=== PATIENT | male | born 1975 | race Caucasian/White ===

== ENCOUNTER 2024-05-12 08:30 | Emergency (ER) | payer OTHER, SELFPAY ==
[2024-05-12 08:34] VITALS: BP 153/87
[2024-05-12 08:41] VITALS: BP 153/87; BMI 29.5
--- NOTE | 2024-05-12 08:58 | EDRN ---
the pts and daughter were brought back to the pts room, the pt was able to provide this RN a urine sample
[2024-05-12 09:05] LABS: % Basophils 0.6 % (0-2); % Eosinophils 0.5 % (0-6); % Immature Granulocytes 0.2 % (0-0.5); % Lymphocytes 13.7 % (20.5-51.1); % Monocytes 7.4 % (1.7-9.3); % Neutrophils 77.6 % (42.2-75.2); Absolute Basophils 0.1 10^3/uL (0-0.2); Absolute Eosinophils 0.1 10^3/uL (0-0.7); Absolute Lymphocytes 1.3 10^3/uL (1.2-3.4); Absolute Monocytes 0.7 10^3/uL (0.1-0.6); Absolute Neutrophils 7.3 10^3/uL (1.4-6.5); Hematocrit 46.5 % (39.0-52.0); Hemoglobin 16.5 g/dL (13.0-18.0); Mean Corp Hgb Conc. 35.5 g/dL (33.0-37.0); Mean Corpuscular Hgb 30.4 pg (27.0-31.0); Mean Corpuscular Volume 85.6 fL (80.0-94.0); Mean Platelet Volume 9.6 fL (7.4-10.4); Nucleated Red Blood Cells % 0 % (-); Platelet Count 271 10^3/uL (130-400); Red Blood Cell Count 5.43 10^6/uL (4.70-6.10); Red Cell Dist. Width 11.5 % (11.5-14.5); White Blood Cell Count 9.4 10^3/uL (4.8-10.8)
--- NOTE | 2024-05-12 09:05 | EDRN ---
the pt pressed the call zeng and this RN entered the pts room, the pt was seen crying and asked this RN for a tissue, this RN provided the pt with a box of tissues, the pt stated to this RN, 'I am scared of going to sleep and waking up and finding
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
--- NOTE | 2024-05-12 09:13 | ED.GENMED ---
History of Present Illness
General
Chief Complaint: Psychiatric Problem
Source: patient and spouse
Exam Limitations: none
Time Seen by Provider: 05/12/24 08:32
Nursing documentation reviewed up to this point in time: agreed with
History of Present Illness
History of Present Illness:
48-year-old male brought to the ER by EMS. and daughter at bedside. is giving majority history. She reports that patient has a history of bipolar disorder however for at least 20 years has been off of his lithium and has been doing
fine. For the past 3 days she reports patient is acting erratic very manic not making sense. He was up all night texting. Today he was stating he was not making any sense. Patient presents to the ER awake alert anxious he is aware that he is'
not thinking right.'
reports patient had a half of pot gummy last night which is typical prior to sleep. Patient denies any other drug use.
Patient denies any suicidal homicidal thoughts.
Review of Systems
Review of Systems
Allergies reviewed?: Yes
Other source history: family
All Other Systems: ROS reviewed and negative except as documented in HPI and ROS
Constitutional: Reports no symptoms; Denies fever, fatigue or chills
Respiratory: Reports no symptoms
Cardiac: Reports no symptoms
ABD/GI: Reports no symptoms
Musculoskeletal: Reports no symptoms
Skin: Reports no symptoms
Neurological: Reports no symptoms
Psychiatric: Reports other (Anxious manic disorganized thoughts); Denies suicidal
Phy Exam
General Physical Exam
General Presentation: no apparent distress
General age: appears stated age
General Skin: warm and dry
General Habitus: normal
General Mental: alert
General Hydration: appears well hydrated
Cardiovascular Exam
Cardiovascular Exam: regular rate/rhythm
Pulmonary Exam
Pulmonary Exam: lungs clear and no respiratory distress
Neurological Exam
Neurological Exam: alert and oriented x3
Musculoskeletal Exam
Musculoskeletal Exam: full ROM
Skin Exam
Skin Exam: normal color and warm/dry
Psychiatric Exam
Psychiatric Exam: anxious and other (Manic)
Course
Orders/Labs/Results
Orders:
Orders
05/12/24 08:56
Complete Blood Count/With Diff Urgent
Comprehensive Metabolic Panel Urgent
TSH Reflex To Free T4 Urgent
Urinalysis Reflex To Culture Urgent
Date Specimen was Collected: 05/12/24
Time Specimen was Collected: 08:51
Urine Drug Abuse Screen Urgent
Date Specimen was Collected: 05/12/24
Time Specimen was Collected: 08:51
05/12/24 09:25
Add On- LAB Urgent
Tests Added?: tsh w/ reflexive T4
05/12/24 09:27
CT Head W/o Iv Contrast Urgent
Comment:
Reason For Exam: acute change in ms
05/12/24 09:29
PSYCHIATRY CONSULT Urgent
Consulting Provider: Ben Phelps
Was physician already notified: Yes
Reason for consult: eval for change in ms manic x3d
05/12/24 09:56
0.9% Sodium Chloride 1000 ml [Nss] 1,000 ml IV BOLUS
05/12/24 10:21
Crisis Consult Urgent
Reason for Consult: eval for placement as per psychiatrist
05/12/24 11:12
Lorazepam [Ativan] 1 mg PO Q4HPRN PRN
05/12/24 Dinner
Regular
At Your Request: Full Participation
Does patient need a safe tray?: Yes
Abnormal Lab Results
05/12/24
08:56
Absolute Neuts (auto) 7.3 H 10^3/uL
(1.4-6.5)
Absolute Monos (auto) 0.7 H 10^3/uL
(0.1-0.6)
Neutrophils % 77.6 H %
(42.2-75.2)
Lymphocytes % 13.7 L %
(20.5-51.1)
Carbon Dioxide 20 L mmol/L
(22-30)
BUN 33 H mg/dl
(9-20)
Glucose 122 H mg/dl
(70-99)
Total Bilirubin 2.8 H mg/dl
(0.2-1.3)
Albumin 5.1 H g/dl
(3.5-5.0)
Urine Ketones 3+ A
(Negative)
Urine Urobilinogen 3+ A
(Neg - 1+)
U Marijuana (THC) Screen Positive H
(Negative)
05/12/24 08:56
05/12/24 08:56
Vital Signs
Initial and Last Documented VS:
Initial Vital Signs
BP
153/87
05/12/24 08:34
Last Documented Vital Signs
Temp Pulse Resp BP Pulse Ox
98.5 F 89 18 159/59 99
05/12/24 14:12 05/12/24 18:25 05/12/24 18:25 05/12/24 18:25 05/12/24 18:25
[employer] consulted with Physician
[employer] consulted with physician?: Yes
Name of Physician Consulted: Barber
MDM/Problems Addressed
Differential Diagnosis Includes:
Not limited to anxiety psychosis exacerbation of bipolar disorder
MDM/Problems Addressed:
Patient with history of bipolar disorder has been off lithium for years however very agitated manic and hyper with disorganized thoughts for the past 3 days. Patient has no other physical complaints. He has no medical past medical history. He
presents awake alert anxious hyper, manic. and daughter at bedside. Patient was eval by psychiatry who does feel the patient needs inpatient treatment. Patient 's labs reviewed BUN mildly elevated patient was given fluid and also drinking
fluid here in the ER, he has an isolated elevated bilirubin(pt sts this is not new ) no prior labs however normal LFTs, normal thyroid, UDS positive for marijuana, CAT scan unremarkable..
Patient was evaluated by psychiatry who does feel that patient will be better suited inpatient.
Psychiatry did order Ativan. PT denies suicidal homicidal thoughts
Crisis evaluated.
Medically cleared for crisis
Chronic conditions affecting care:
History of bipolar disorder has been untreated for years
*Pulse Oximetry
Patient hypoxic: no
*Critical Care Note
Total Time (30-74mins, 75-104mins- exclusive of procedures): Not Applicable
Patient Management
Discussion with other providers: [employer] (Psychiatry Dr. Phelps )
ED Attending Note
-
Portions of this chart may have been created with voice recognition software.� Occasional wrong word or��sound alike� substitutions may have occurred due to the inherent limitations of voice recognition software.
Discharge Plan
Departure
Patient Disposition: Psych Facility
Date of Disposition: 05/12/24
Time of Disposition: 14:47
Patient with high blood pressure during this ER visit?: Yes
Condition: Fair
Covid-19: Not Applicable
Discharge Problem:
Anxiety
Prescriptions:
No Action
No Current Medications
0
Referrals:
Jesus Mejia MD [Family Provider] -
Interventions
Interventions:
*Risk Screen - Suicide Last Done: 05/12/24 08:41
*General Assessment Last Done: 05/12/24 08:41
*Neglect/Abuse Screening Last Done: 05/12/24 08:41
ED- Fall Risk Assessment Last Done: 05/12/24 08:41
*ED COVID-19 Vaccine History Last Done: 05/12/24 08:41
*Nursing Disposition Last Done: 05/12/24 20:55
ED-Psychological Assessment Last Done: 05/12/24 08:41
Discharge Date and Time
Discharge Date/Time: 05/12/24 20:56
Print Language: KOREAN
--- NOTE | 2024-05-12 09:14 | EDRN ---
Selin Hampton FLOOR TECHNICIAN currently at the pts bedside
[2024-05-12 09:21] LABS: ALT (SGPT) 37 U/L (0-50); AST (SGOT) 50 U/L (17-59); Albumin 5.1 g/dl (3.5-5.0); Alkaline Phosphatase 69 U/L (38-126); Blood Urea Nitrogen 33 mg/dl (9-20); Calcium 10.1 mg/dl (8.4-10.2); Carbon Dioxide 20 mmol/L (22-30); Chloride 106 mmol/L (98-107); Estimated Creatinine Clearance 97 ml/min; Glucose 122 mg/dl (70-99); Potassium 4.1 mmol/L (3.5-5.1); Sodium 142 mmol/L (135-145); Total Bilirubin 2.8 mg/dl (0.2-1.3); Total Protein 8.1 g/dl (6.3-8.2); eGFR > 60.00
[2024-05-12 09:27] LABS: Amphetamines Negative (Negative); Barbiturates Negative (Negative); Benzodiazepines Negative (Negative); Buprenorphine Negative (Negative); Cocaine Negative (Negative); Methadone Negative (Negative); Methamphetamines Negative (Negative); Opiates Negative (Negative)
[2024-05-12 09:28] LABS: Marijuana Positive (Negative); Phencyclidine Negative (Negative); Tricyclic Antidepressants Negative (Negative)
[2024-05-12 09:30] LABS: Urine Albumin Trace (Neg - Trace); Urine Bilirubin Negative (Negative); Urine Character Clear (Clear); Urine Color Yellow; Urine Glucose Negative (Negative); Urine Ketone 3+ (Negative); Urine Leukocyte Negative (Negative); Urine Nitrite Negative (Negative); Urine Occult Blood Negative (Negative); Urine Specific Gravity 1.015 (<1.030); Urine Urobilinogen 3+ (Neg - 1+)
--- NOTE | 2024-05-12 09:57 | EDRN ---
psychiatry currently at the pts bedside speaking with the pts family, the pt is currently in [place]
[2024-05-12] MEDS: NSS 1000 IV (10:27)
[2024-05-12 10:29] LABS: TSH Reflex To Free T4 0.91 uIU/ml (0.47-4.68)
[2024-05-12 10:35] VITALS: BP 158/93
[2024-05-12 10:53] VITALS: BP 158/93
--- NOTE | 2024-05-12 11:13 | CS.PSYCHR ---
Consult Summary - Psychiatry
-
Pt is 48 yo male with past history of diagnosis Bipolar d/o in his late teens, not in any treatment for 25 years without problems per his , brought in after called 911 due to erratic behavior and thoughts, euphoria, pressured speech,
decreased sleep for 3 days, texted at 3 am with very disorganized content. Pt seen with , dtr and mother present. Pt's father this October (6 months ago); pt is helping his 81 yo mother, handling father's estate, has stressful
job. 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 Pt distracted, got lost driving to their usual grocery store. concerned for pt's safety at home due to unpredictable
behavior. Pt is also anxious, tearful, states he knows something is not right, his 'neurons are firing all over,' expressing fear he is dying or will lose his /family. Pt has reportedly been eating okay. UDS showed MJ; pt reportedly takes 1/2
of a THC gummy at night to sleep, sleeps with CPAP and normally gets about 5 hours of sleep.
Psych Hx: inpatient at [facility] in late teens, was prescribed [facility], took it for a while into his 20's, then eventually stopped. Pt states he went to [facility] back then. No active treatment in over 20 years.
No hx of inpatient treatment as an adult
PMH: sleep apnea, uses CPAP
SH: works primarily from home, has stressful job, x 25 years. reports no substance use, apart from the THC gummy at HS
MSE: alert, oriented, anxious, labile/tearful, speech pressured, thought tangential with difficulty answering questions clearly. No overt delusions. Mood mixed- depressed/apprehensive, expansive, talking about his dtr taught him to described his
emotions. Denies suicidal/homicidal ideation. Insight/judgement limited. Ambivalent/anxious about prospect of inpatient treatment, able to accept feedback from his and mother
Imp: Unspecified Bipolar d/o, manic episode, some mixed/depressive and anxious features, R/o psychotic features
Rec: Inpatient treatment on voluntary basis; pt needs immediate stabilization and likely mood-stabilizing medication
Will start Ativan prn. Will follow, and review with Crisis staff regarding placement options
--- NOTE | 2024-05-12 11:23 | EDRN ---
crisis currently at the pts bedside speaking with the pt
[2024-05-12] MEDS: ATIVAN 1 MG PO (13:01)
--- NOTE | 2024-05-12 14:11 | EDRN ---
the pt is sleeping in stretcher in the lowest position, side rails up x2, call zeng within reach, HOB elevated, no s/s of distress, the pst and sister in law are currently at the pts bedside, will continue to monitor the pt closely
[2024-05-12 14:12] VITALS: BP 145/71
[2024-05-12 18:25] VITALS: BP 159/59
== END 2024-05-12 20:56 ==
LOC: EMR 08:30
PROVIDERS: CONSULT PHYSICIAN Psychiatry & Neurology Psychiatry; EMERGENCY PHYSICIAN Emergency Medicine; FAMILY PHYSICIAN Family Medicine
DX: F41.9 Anxiety disorder, unspecified (principal); F31.9 Bipolar disorder, unspecified; R03.0 Elevated blood-pressure reading, without diagnosis of hypertension
CPT/HCPCS: 99285; 96360; 70450; 80053; 80306; 81003; 84443; 85025